=== PATIENT | female | born 1990 | race Hispanic/Latino ===

== ENCOUNTER 2018-01-14 22:26 | Inpatient (IN) | payer BC, MEDICAID ==
[~2018-01-14] VITALS: Ht 160 cm; Wt 118.8 kg
[~2018-01-14 22:26] MED LIST: GLYB1.253 PO
[2018-01-14 22:39] VITALS: BP 127/80
[2018-01-14 23:10] LABS: BILIRUBIN,URINE Negative (NEGATIVE); COLOR,URINE Yellow (YELLOW); GLUCOSE, URINE (UA) Negative (NEGATIVE); KETONES,URINE Negative (NEGATIVE); LEUKOCYTE ESTERASE ,URINE Small (NEGATIVE); NITRATE,URINE Negative (NEGATIVE); OCCULT BLOOD,URINE Trace (NEGATIVE); PH,URINE 6.5 (5.0-8.0); PROTEIN,URINE Trace (NEGATIVE)
[2018-01-14 23:15] LABS: APPEARANCE,URINE HAZY (CLEAR)
[2018-01-14 23:28] LABS: RBC,URINE 0-1 /HPF (0-1)
[2018-01-14 23:29] LABS: BACTERIA,URINE Few /HPF (None Seen); CALCIUM OXALATE CRYSTALS,UR Moderate /LPF (None Seen)
[2018-01-14] MEDS ORDERED: TERBUTALINE SULFATE VIAL 1MG/ML SQ PRN (23:45)
[2018-01-14] MEDS ORDERED: MEPERIDINE-PF 50 MG/ML SYG IVP ONE (23:45)
[2018-01-14] MEDS ORDERED: PREN1TAB89 PO (23:48)
[2018-01-14] MEDS ORDERED: GLYB1.253 PO (23:48)
[2018-01-15 00:44] LABS: HEMATOCRIT 35.8 % (36-48); MEAN CORPUSCULAR HGB CONC 36.1 g/dL (32.0-36.0); MEAN CORPUSCULAR VOLUME 85.8 fL (79-99); PLATELET COUNT (AUTO) 253 K/uL (130-400); RED BLOOD CELL COUNT(AUTO) 4.17 MIL/uL (4.00-5.50); RED CELL DISTRIBUTION WIDTH 14.4 % (11.0-15.5); WHITE BLOOD COUNT (AUTO) 10.6 K/uL (4.8-10.8)
[2018-01-15] MEDS ORDERED: MEPERIDINE-PF 50 MG/ML SYG ONE ×2 (01:00→10:46)
[2018-01-15] MEDS: LACTATED RINGERS 1000ML 1,000 ML IV PRN ×3 (01:05→17:22)
[2018-01-15] MEDS: PROMETHAZINE HCL 25 MG/ML 1ML AMPULE IM SCH (01:05)
[2018-01-15] MEDS ORDERED: CALDOLOR 800MG+NS 250ML 250 ML IV ONE (06:59)
[2018-01-15] MEDS ORDERED: CEFAZOLIN 1GM / D5W 50ML 150 ML ONE (07:00)
[2018-01-15] MEDS ORDERED: CALDOLOR 800MG+NS 250ML 250 ML IV PRN (07:00)
[2018-01-15] MEDS ORDERED: CEFAZOLIN SODIUM 1 GM VIAL IVP PRN (07:00)
[2018-01-15] MEDS ORDERED: DEXAMETHASONE SOD PHOSPHATE 10MG/ML 1ML VIAL ONE (07:16)
[2018-01-15] MEDS ORDERED: OXYTOCIN 10 UNIT/1ML 10ML VIAL ONE (07:16)
[2018-01-15] MEDS ORDERED: MIDAZOLAM HCL 1 MG/ML 2ML VIAL ONE (07:16)
[2018-01-15] MEDS ORDERED: PHENYLEPHRINE HCL 10 MG/ML 1ML VIAL IV ONE (07:18)
[2018-01-15] MEDS ORDERED: CEFAZOLIN SODIUM 1 GM VIAL IVP ONE (08:05)
[2018-01-15] MEDS ORDERED: MEPERIDINE-PF 25 MG/ML SYG ONE ×3 (09:17→10:46)
[2018-01-15] MEDS ORDERED: OXYTOCIN 10 USP UNITS/ML ONE ×2 (09:35→17:14)
[2018-01-15] MEDS ORDERED: DIPHENHYDRAMINE HCL 25 MG CAPSULE PO PRN (10:15)
[2018-01-15] MEDS ORDERED: MEASLES/MUMPS/RUBELLA VACCINE, LIVE 0.5 ML/VIAL SQ SCH (10:15)
[2018-01-15] MEDS ORDERED: DEXTROSE 5 %-0.45 % NACL 1,000 ML IV PRN (10:15)
[2018-01-15] MEDS ORDERED: PROMETHAZINE HCL 25 MG/ML 1ML AMPULE IM PRN (10:15)
[2018-01-15] MEDS ORDERED: DIPH,PERTUSS(ACELL),TET VAC/PF 0.5 ML VIAL IM SCH (10:15)
[2018-01-15] MEDS ORDERED: OXYTOCIN-LR 20 UNITS/1000 ML 1,000 ML IV PRN (10:15)
[2018-01-15] MEDS ORDERED: LANOLIN 30GM OINTMENT TP PRN (10:15)
[2018-01-15] MEDS ORDERED: SODIUM CHLORIDE 0.9% 10 ML VIAL IVP PRN (10:15)
[2018-01-15] MEDS ORDERED: BISACODYL 10 MG SUPP.RECT RC PRN (10:15)
[2018-01-15] MEDS ORDERED: HYDROCODONE/ACETAMINOPHEN 5/325 MG TAB PO PRN (10:15)
[2018-01-15] MEDS ORDERED: MEPERIDINE-PF 75 MG/ML SYG IM PRN (10:15)
[2018-01-15 10:55] VITALS: BP 126/71
[2018-01-15 11:49] VITALS: BP 116/69
[2018-01-15] MEDS ORDERED: METHYLERGONOVINE MALEATE 0.2 MG/1 ML ML IM SCH (12:45)
[2018-01-15 15:58] VITALS: BP 115/70
[2018-01-15] MEDS: HYDROCODONE/ACETAMINOPHEN 5/325 MG TAB PO PRN (17:24)
[2018-01-15] MEDS: CALDOLOR 800MG+NS 250ML 250 ML IV SCH (18:22)
[2018-01-15 20:06] VITALS: BP 112/70
[2018-01-15] MEDS: DOCUSATE SODIUM 100 MG CAP PO SCH (21:15)
[2018-01-15] MEDS: SIMETHICONE 80 MG TAB.CHEW PO PRN (21:15)
[2018-01-15 23:53] VITALS: BP 100/59
[2018-01-16] MEDS: CALDOLOR 800MG+NS 250ML 250 ML IV SCH (02:11)
[2018-01-16] MEDS: IBUPROFEN 800 MG TAB PO SCH ×3 (02:15→17:32)
[2018-01-16 03:45] VITALS: BP 110/66
[2018-01-16] MEDS: HYDROCODONE/ACETAMINOPHEN 5/325 MG TAB PO PRN ×4 (03:45→21:34)
[2018-01-16 06:15] LABS: HEPATITIS Bs ANTIGEN SCREEN P Negative (Negative)
[2018-01-16 06:51] LABS: HEMATOCRIT 26.8 % (36-48); MEAN CORPUSCULAR HEMOGLOBIN 29.5 pg (27.0-33.0); MEAN CORPUSCULAR HGB CONC 33.9 g/dL (32.0-36.0); PLATELET COUNT (AUTO) 218 K/uL (130-400); RED BLOOD CELL COUNT(AUTO) 3.08 MIL/uL (4.00-5.50); RED CELL DISTRIBUTION WIDTH 14.4 % (11.0-15.5)
[2018-01-16 07:37] VITALS: BP 107/62
[2018-01-16] MEDS: LIDOCAINE 5% TOPICAL PATCH TP SCH (09:17)
[2018-01-16] MEDS: SIMETHICONE 80 MG TAB.CHEW PO PRN ×4 (09:17→21:31)
[2018-01-16] MEDS: DOCUSATE SODIUM 100 MG CAP PO SCH ×2 (09:17→21:31)
[2018-01-16 11:32] VITALS: BP 89/63
[2018-01-16 15:43] VITALS: BP 104/55
[2018-01-16 20:30] VITALS: BP 109/63
[2018-01-17] VITALS (7 sets, daily range): BP systolic 90–112; BP diastolic 50–69
[2018-01-17] MEDS: IBUPROFEN 800 MG TAB PO SCH ×3 (02:34→15:58)
[2018-01-17] MEDS: SIMETHICONE 80 MG TAB.CHEW PO PRN ×2 (08:30→15:57)
[2018-01-17] MEDS: DOCUSATE SODIUM 100 MG CAP PO SCH ×2 (08:30→20:49)
[2018-01-17] MEDS: HYDROCODONE/ACETAMINOPHEN 5/325 MG TAB PO PRN ×3 (08:31→21:53)
[2018-01-17] MEDS: LIDOCAINE 5% TOPICAL PATCH TP SCH (09:00)
[2018-01-17] MEDS: PROMETHAZINE HCL 25 MG/ML 1ML AMPULE IM SCH (16:13)
[2018-01-17] MEDS: LACTATED RINGERS 1000ML 1,000 ML IV PRN (16:16)
[2018-01-18] MEDS: IBUPROFEN 800 MG TAB PO SCH ×2 (00:01→08:11)
[2018-01-18 04:01] VITALS: BP 107/70
[2018-01-18] MEDS: HYDROCODONE/ACETAMINOPHEN 5/325 MG TAB PO PRN (04:09)
[2018-01-18 07:45] VITALS: BP 105/62
[2018-01-18] MEDS: LIDOCAINE 5% TOPICAL PATCH TP SCH (08:11)
[2018-01-18] MEDS: DOCUSATE SODIUM 100 MG CAP PO SCH (08:11)
[2018-01-18] MEDS: SIMETHICONE 80 MG TAB.CHEW PO PRN (08:11)
== END 2018-01-18 10:50 | disposition home or self-care (01) | DRG 765 ==
LOC: EDH 22:26 → LDH 22:27 → OBSVTOIN 23:40 → LDH 23:50 → WSH 01-15 10:55
PROVIDERS: ADMIT Obstetrics & Gynecology; ATTEND Obstetrics & Gynecology
PROC: 3E0234Z Introduction of Serum, Toxoid and Vaccine into Muscle, Percutaneous Approach (ICD-10-PCS; 2018-01-15)
PROC: 3E0134Z Introduction of Serum, Toxoid and Vaccine into Subcutaneous Tissue, Percutaneous Approach (ICD-10-PCS; 2018-01-15)
PROC: 10D00Z1 Extraction of Products of Conception, Low, Open Approach (ICD-10-PCS; principal; 2018-01-15 07:59)
DX: O34.211 Maternal care for low transverse scar from previous cesarean delivery (principal); Z68.42 Body mass index [BMI] 45.0-49.9, adult; O24.429 Gestational diabetes mellitus in childbirth, unspecified control; O99.214 Obesity complicating childbirth; E66.9 Obesity, unspecified; N73.6 Female pelvic peritoneal adhesions (postinfective); N85.6 Intrauterine synechiae; O99.89 Other specified diseases and conditions complicating pregnancy, childbirth and the puerperium; Z37.0 Single live birth; Z3A.37 37 weeks gestation of pregnancy; Z23 Encounter for immunization
CPT/HCPCS: 36415; 59510; 81001; 85027; 86592; 86850; 86900; 86901; 87340; A4344; A4606; J0690; J1100; J1741; J2175; J2210; J2250; J2370; J2550; J2590; J7120

== ENCOUNTER 2018-01-21 18:52 | Emergency (ER) | payer BC, MEDICAID ==
[~2018-01-21 18:52] MED LIST changes: +PREN1TAB89 PO
[2018-01-21] MEDS ORDERED: IOPAMIDOL-370 100 ML VIAL IV ONE (19:17)
[2018-01-21 19:37] LABS: BASOPHILS % (AUTO) 0.3 % (0.0-5.0); EOSINOPHILS % (AUTO) 1.6 % (0.0-8.0); LYMPHOCYTES % (AUTO) 17.1 % (21.0-51.0); MEAN CORPUSCULAR HEMOGLOBIN 29.4 pg (27.0-33.0); MEAN CORPUSCULAR HGB CONC 33.7 g/dL (32.0-36.0); MEAN CORPUSCULAR VOLUME 87.2 fL (79-99); MONOCYTES % (AUTO) 5.3 % (3.0-13.0); NEUTROPHILS % (AUTO) 75.7 % (40.0-77.0); PLATELET COUNT (AUTO) 474 K/uL (130-400); RED CELL DISTRIBUTION WIDTH 14.4 % (11.0-15.5); WHITE BLOOD COUNT (AUTO) 12.2 K/uL (4.8-10.8)
[2018-01-21 19:48] LABS: INR 0.92 (0.85-1.15); PARTIAL THROMBOPLASTIN TIME 26.3 SEC (26.3-35.5); PROTHROMBIN TIME 9.7 SEC (9.6-11.6)
[2018-01-21 19:49] LABS: CREATININE 0.6 mg/dL (0.5-1.5); POTASSIUM 3.5 mmol/L (3.5-5.1)
[2018-01-21 19:54] LABS: ALBUMIN 2.5 g/dL (3.5-5.0); BILIRUBIN,TOTAL 0.2 mg/dL (0.2-1.0); TOTAL PROTEIN, SERUM 6.6 g/dL (6.0-8.3)
[2018-01-21 20:07] LABS: B-TYPE NATRIURETIC PEPTIDE 114 pg/mL (0-100)
[2018-01-21] MEDS ORDERED: SODIUM CHLORIDE 0.9% 1000ML 1,000 ML IV ONE (20:21)
[2018-01-21] MEDS ORDERED: ACETAMINOPHEN 325 MG TAB ONE (20:21)
[2018-01-21] MEDS ORDERED: HYDROXYZINE HCL 25 MG TABLET ONE (20:35)
== END 2018-01-21 21:12 | disposition home or self-care (01) ==
LOC: EDH 18:52
DX: G89.18 Other acute postprocedural pain (principal); R10.9 Unspecified abdominal pain; R06.02 Shortness of breath; M79.89 Other specified soft tissue disorders; Z79.899 Other long term (current) drug therapy
CPT/HCPCS: 36415; 71275; 80053; 83880; 84484; 85025; 85610; 85730; 93005; 99285; J7030; Q9967